=== PATIENT | female | born 1965 | race Asian ===

== ENCOUNTER 2016-08-16 18:48 | Emergency (ER) | payer SELFPAY ==
[~2016-08-16] VITALS: Ht 162.6 cm; Wt 60.0 kg
[2016-08-16 19:11] VITALS: BP 155/73
[2016-08-16] MEDS ORDERED: LORAZEPAM 1MG TABLET PO ONE (19:30)
[2016-08-16] MEDS ORDERED: IBUPROFEN 800MG TABLET PO ONE (19:30)
== END 2016-08-16 21:55 | disposition home or self-care (01) ==
LOC: ER 18:49
DX: S16.1XXA Strain of muscle, fascia and tendon at neck level, initial encounter (principal); V49.9XXA Car occupant (driver) (passenger) injured in unspecified traffic accident, initial encounter; Y93.89 Activity, other specified; Y92.89 Other specified places as the place of occurrence of the external cause; Y99.8 Other external cause status
CPT/HCPCS: 72040; 81025; 99284; Z7610